=== PATIENT | female | born 1975 | race Two or more races ===

== ENCOUNTER 2025-03-20 11:36 | Emergency (ER) | payer SELFPAY ==
[~2025-03-20] VITALS: Ht 162.6 cm; Wt 72.6 kg
[2025-03-20] MEDS ORDERED: KETOROLAC TROMETHAMINE 15 MG/ML VIAL ONE (12:07)
[2025-03-20] MEDS: IV NS 0.9% 1,000 ML BAG IV ONE (12:19)
[2025-03-20] MEDS: KETOROLAC TROMETHAMINE 15 MG/ML VIAL IV ONE (12:22)
[2025-03-20 12:24] LABS: CALCIUM, SERUM 9.4 mg/dL (8.5-10.1); CREATININE 0.6 mg/dL (0.6-1.3); POTASSIUM 3.3 mmol/L (3.5-5.1)
[2025-03-20] MEDS ORDERED: MORPHINE SULFATE INJ 4 MG/ML DISP.SYRIN ONE (12:24)
[2025-03-20] MEDS ORDERED: ONDANSETRON HCL/PF 4 MG/2 ML VIAL ONE (12:24)
[2025-03-20 12:28] LABS: BASOPHILS # (AUTO) 0.1 K/uL (0.0-0.2); BASOPHILS % (AUTO) 0.9 % (0.0-2.0); EOSINOPHILS # (AUTO) 0.4 K/uL (0.0-0.7); EOSINOPHILS % (AUTO) 6.6 % (0.0-6.0); HEMATOCRIT 38 % (33-45); HEMOGLOBIN 12.9 g/dL (11.5-14.8); LYMPHOCYTES # (AUTO) 1.5 K/uL (0.8-4.8); LYMPHOCYTES % (AUTO) 24.8 % (20.0-44.0); MEAN CORPUSCULAR HEMOGLOBIN 29 PG (26.0-33.0); MEAN CORPUSCULAR HGB CONC 34 g/dl (31.0-36.0); MEAN CORPUSCULAR VOLUME 86 fL (82-100); MONOCYTES # (AUTO) 0.3 K/uL (0.1-1.30); MONOCYTES % (AUTO) 4.7 % (2.0-12.0); NEUTROPHILS # (AUTO) 3.9 K/uL (1.8-8.9); PLATELET COUNT (AUTO) 170 K/uL (150-450); RED BLOOD CELL COUNT(AUTO) 4.45 MIL/uL (4.0-5.2); RED CELL DISTRIBUTION WIDTH 13.7 % (11.5-15.0); WHITE BLOOD COUNT (AUTO) 6.2 K/uL (4.3-11.0)
[2025-03-20] MEDS: MORPHINE SULFATE INJ 2 MG/ML DISP.SYRIN IV ONE (12:30)
[2025-03-20] MEDS: ONDANSETRON HCL/PF 4 MG/2 ML VIAL IVP ONE (12:30)
[2025-03-20 12:31] LABS: ALBUMIN 3.7 g/dL (3.4-5.0); BILIRUBIN,DIRECT 0.1 mg/dL (0.0-0.2); BILIRUBIN,TOTAL 0.4 mg/dL (0.2-1.0); TOTAL PROTEIN, SERUM 7.3 g/dL (6.4-8.2)
[2025-03-20 13:38] LABS: APPEARANCE,URINE CLEAR (CLEAR); BILIRUBIN,URINE Negative (NEGATIVE); BLOOD, URINE Negative Ery/uL (NEGATIVE); COLOR,URINE YELLOW (YELLOW); KETONES,URINE Negative (NEGATIVE); LEUKOCYTE ESTERASE ,URINE Negative (NEGATIVE); PH,URINE 6.5 (5.0-8.0); PROTEIN,URINE Negative (NEGATIVE); UGLUCOSE Negative (NEGATIVE); UROBILINOGEN,URINE 0.2 EU/dL (0.2)
[2025-03-20 13:40] LABS: NITRITE, URINE NEGATIVE (NEGATIVE)
[2025-03-20] MEDS ORDERED: DICY10CA37 PO (13:59)
[2025-03-20 14:48] VITALS: BP 135/85; TEMP 98.5; O2SAT 98
== END 2025-03-20 14:49 | disposition home or self-care (01) ==
LOC: ER 11:40
DX: R11.2 Nausea with vomiting, unspecified (principal); R19.7 Diarrhea, unspecified; R10.32 Left lower quadrant pain; Z90.49 Acquired absence of other specified parts of digestive tract; Z79.899 Other long term (current) drug therapy
CPT/HCPCS: 99285; 74176; 96374; 96361; 96375; 85025; 80048; 83690; 80076; 84703; 81003; 36415; J2270; J2405; J7030; J1885

== ENCOUNTER 2025-03-23 23:27 | Emergency (ER) | payer SELFPAY ==
[~2025-03-23] VITALS: Ht 162.6 cm; Wt 75.3 kg
[~2025-03-23 23:27] MED LIST: DICY10CA37 PO
[2025-03-24] MEDS ORDERED: KETOROLAC TROMETHAMINE INJ 30 MG/ML VIAL ONE (00:53)
[2025-03-24] MEDS: KETOROLAC TROMETHAMINE INJ 30 MG/ML VIAL IM ONE (00:58)
[2025-03-24 01:15] VITALS: BP 125/89; TEMP 98; O2SAT 99
== END 2025-03-24 01:15 | disposition home or self-care (01) ==
LOC: ER 23:37
DX: R10.9 Unspecified abdominal pain (principal); Z90.49 Acquired absence of other specified parts of digestive tract
CPT/HCPCS: J1885

== ENCOUNTER 2025-04-16 10:17 | Emergency (ER) | payer OTHER ==
[~2025-04-16] VITALS: Ht 160 cm; Wt 75.3 kg
[2025-04-16 11:19] LABS: PREGNANCY TEST URINE QUAL NEGATIVE (NEGATIVE)
[2025-04-16] MEDS ORDERED: ACETAMINOPHEN ES 500 MG TABLET ONE (11:26)
[2025-04-16] MEDS ORDERED: METOCLOPRAMIDE HCL 10 MG/2 ML VIAL ONE (11:26)
[2025-04-16] MEDS: IV NS 0.9% 1,000 ML BAG IV ONE (11:40)
[2025-04-16] MEDS: ACETAMINOPHEN ES 500 MG TABLET PO ONE (11:40)
[2025-04-16] MEDS: METOCLOPRAMIDE HCL 10 MG/2 ML VIAL IV ONE (11:40)
[2025-04-16] MEDS ORDERED: SUMATRIPTAN SUCCINATE 25 MG TABLET ONE (12:43)
[2025-04-16] MEDS ORDERED: KETOROLAC TROMETHAMINE 15 MG/ML VIAL ONE (12:43)
[2025-04-16] MEDS: KETOROLAC TROMETHAMINE 15 MG/ML VIAL IV ONE (12:48)
[2025-04-16] MEDS: SUMATRIPTAN SUCCINATE 25 MG TABLET PO ONE (12:48)
[2025-04-16 13:19] VITALS: BP 128/82; TEMP 97.9; O2SAT 97
== END 2025-04-16 13:20 | disposition home or self-care (01) ==
LOC: ER 10:20
DX: G43.909 Migraine, unspecified, not intractable, without status migrainosus (principal); Z90.49 Acquired absence of other specified parts of digestive tract
CPT/HCPCS: 99284; 96374; 96375; 96361; 84703; J1885; J1200; J2765; J7030